=== PATIENT | female | born 2005 | race Caucasian/White ===

== ENCOUNTER 2024-09-24 06:05 | Emergency (ER) | payer MEDICAID, SELFPAY ==
[2024-09-24] VITALS (21 sets, daily range): BP systolic 119–122; BP diastolic 70–74; PULSE 57–87; RESP 18; TEMP 36.6; O2SAT 85–100; BMI 27.4
--- NOTE | 2024-09-24 17:58 | PC.NURSE ---
late entry 09/24/2024 [id number] Henriquez informed her that NST was reactive, no uterine contractions, patient denied any vaginal bleeding or leaking. Per Dr. Henriquez ok to transfer to ED department. Patient transferred by water treatment technician in wheelchair in stable conditio. Report given to ED RN
--- NOTE | 2024-09-24 18:42 | PD.EDNV ---
Nausea/Vomit./Diarrhea-RME/HPI General Chief complaint: Nausea/Vomiting/Diarrhea Stated complaint: LABOR EVAL Time Seen by Provider: 09/24/24 18:36 Arrival date/time: 09/24/24 06:05 19F with history of previous marijuana use, but none since being (currently 28 weeks) presents to ED with 1 day of N/V, epigastric pain and cough. Patient denies vaginal bleeding and was cleared by OB. Limitations: no limitations Related Data Previous Rx's ?Medication ?Instructions ?Recorded sodium chloride 0.65 % nasal spray 2 spray intranasal QID #60 mL 03/28/19 aerosol (Saline Mist) cefuroxime axetil 500 mg tablet 500 mg PO BID 7 days #14 tabs 09/24/24 metoclopramide HCl 10 mg tablet 10 mg PO BID #30 tabs 09/24/24 (Reglan) oseltamivir 75 mg capsule (Tamiflu) 75 mg PO BID 5 days #10 caps 09/24/24 Allergies Allergy/AdvReac Type Severity Reaction Status Date / Time No Known Allergies Allergy Verified 09/24/24 16:49 Review of Systems Review of Systems Systems Reviewed: All systems reviewed, normal except as documented Constitutional Constitutional: Reports system reviewed and no additional complaints, except as documented, Denies fever(s) and Denies headache(s) ENT Ears, Nose, Mouth, and Throat: Denies disequilibrium and Denies headache(s) Cardiovascular Cardiovascular: Reports system reviewed and no additional complaints, except as documented, Denies chest pain and Denies dyspnea Respiratory Respiratory: Reports system reviewed and no additional complaints, except as documented, Reports as per HPI, Reports cough and Denies dyspnea Gastrointestinal Gastrointestinal: Reports system reviewed and no additional complaints, except as documented, Reports as per HPI, Reports abdominal pain, Reports nausea and Reports vomiting Neurologic Neurologic: Reports system reviewed and no additional complaints, except as documented, Denies confusion, Denies disequilibrium and Denies headache(s) Psychiatric Psychiatric: Denies confusion Past Medical History Past Medical History NEUROLOGIC: Negative Neurological Disorders CARDIAC: Negative Cardiac Disorders, Congestive Heart Failure or Hypertension RESPIRATORY: Negative Chronic Obstructive Pulmonary Disease (COPD) or Asthma GASTROINTESTINAL: Negative Gastrointestinal Disorders GENITOURINARY: Negative Genitourinary Disorders or Renal Disease REPRODUCTIVE: Positive Previous Pregnancies MUSCULOSKELETAL: Negative Musculoskeletal Disorders or Scoliosis ENDOCRINE: Negative Endocrine Disorders, Diabetes Mellitus Type 1 or Diabetes Mellitus Type 2 HEMATOLOGIC: Positive Blood Disorders and Anemia (in ) PSYCHO/SOCIAL: Negative Depression, Anxiety or Depression OTHER HISTORY: Negative Autoimmune Disease Family History FAMILY HISTORY: Positive Family Cancer (grandmother thyroid); Negative Family Psychiatric Problems, Family Respiratory Disorders, Family Cardiac Disorders, Family Gastrointestinal Problems, Family Surgery or Family Anesthesia Reaction Surgical History SURGICAL: Negative Section Social History SMOKING STATUS: Never smoker ED Exam General Limitations: Present no limitations General appearance: Present alert and in no apparent distress Head Head exam: Present atraumatic Eye Eye exam: Present normal appearance, PERRL and EOMI ENT ENT exam: Present normal exam, normal oropharynx and mucous membranes moist Neck Neck exam: Present normal inspection, full ROM and trachea midline Chest Chest inspection: Present normal inspection and symmetric chest wall rise Respiratory Respiratory exam: Present normal lung sounds bilaterally Cardiovascular Cardiovascular exam: Present regular rate, normal rhythm and normal heart sounds Abdominal Exam Abdominal exam: Present soft and normal bowel sounds Extremities Exam Extremities exam: Present normal inspection and full ROM Back Exam Back exam: Present normal inspection and full ROM Neurological Exam Neurological exam: Present alert, oriented X3 and CN II-XII intact Psychiatric Psychiatric exam: Present normal affect and normal mood Skin Skin exam: Present warm, dry, intact and normal color Course Quality Measures none Orders Category Date Time Status Place in Observation Status Routine Admission 09/24/24 16:47 Active Bedside Influenza A&B Antigen Test NOW Care 09/24/24 18:36 Completed Continuous Monitoring Routine Care 09/24/24 16:47 Ordered Insert IV NOW Care 09/24/24 19:49 Active CBC Stat Lab 09/24/24 18:47 Completed CMP [Comprehensive Metabolic Panel] Stat Lab 09/24/24 18:47 Completed Drug Screen,Urine Stat Lab 09/24/24 19:00 Completed Lipase Stat Lab 09/24/24 18:47 Completed UA [Urinalysis] Stat Lab 09/24/24 18:59 Completed DiphenhydrAMINE INJ [Benadryl Inj] Med 09/24/24 20:17 Discontinued 12.5 mg IVP X1 ONE Metoclopramide Inj [Reglan Inj] Med 09/24/24 20:17 Discontinued 5 mg IVP X1 ONE Metoclopramide [Reglan] Med 09/24/24 18:37 Discontinued 10 mg PO X1 ONE Oseltamivir [Tamiflu] Med 09/24/24 21:07 Discontinued 75 mg PO X1 ONE Ringers Lactated 1000 ml [Lactated Ringers] 1,000 ml Med 09/24/24 19:50 Discontinued IV 999 mls/hr cefTRIAXone [Rocephin] 1,000 mg Med 09/24/24 19:49 Discontinued SODIUM CHLORIDE 0.9% (Popper) [Ns 0.9% (P)] 50 ml IV X1 Vital Signs Vital signs: Vital Signs Pulse Rate 87 09/24/24 16:27 Blood Pressure 119/74 09/24/24 16:27 O2 at 100% on RA and WNLs Nausea/Vomiting/Diarrhea MDM Narrative MDM Narrative:: 19F with history of previous marijuana use, but none since being (currently 28 weeks) presents to ED with 1 day of N/V, epigastric pain and cough. Patient denies vaginal bleeding and was cleared by OB. Physical exam reveals clear ENT and lungs. No ab tenderness. Patient is afebrile, calm, and alert. Flu A+. Marijuana still positive. UA dehydration and UTI. No leukocytosis. CMP unremarkable. PO challenge passed after meds and IVF. Will give Tamiflu given status. Patient data External records reviewed:: [facility] previous records Clinical information provided by:: patient Social determinants that could affect healthcare access:: substance use Patient has the following chronic illnesses:: marijuana use How is presenting disease/condition affected by chronic disease/condition?: exacerbated by Evaluation data The following diagnostics were reviewed and interpreted by me:: lab results Lab and/or radiology exams considered but not ordered:: ordered Interpretation Summary: above Medications / Prescriptions Medications / Prescriptions considered but not ordered:: ordered Medication administrations:: Medication Administration History Discontinued Medications Diphenhydramine HCl (Diphenhydramine Inj 50 Mg/Ml Vial) 12.5 mg IVP X1 ONE Stop: 09/24/24 20:18 Last Admin: 09/24/24 20:28 Dose: 12.5 mg Documented By: SEJAL Ceftriaxone Sodium 1,000 mg/ (Sodium Chloride) 50 mls @ 100 mls/hr IV X1 ONE Stop: 09/24/24 20:18 Last Admin: 09/24/24 20:08 Dose: 100 mls/hr Documented By: SEJAL Lactated Ringer's (Lactated Ringers) 1,000 mls @ 999 mls/hr IV .Q1H1M ONE Stop: 09/24/24 20:50 Last Admin: 09/24/24 20:09 Dose: 999 mls/hr Documented By: SEJAL Metoclopramide HCl (Metoclopramide 5 Mg Tablet) 10 mg PO X1 ONE Stop: 09/24/24 18:38 Last Admin: 09/24/24 19:06 Dose: 10 mg Documented By: JU Metoclopramide HCl (Metoclopramide Inj 5 Mg/Ml Vial 2 Ml) 5 mg IVP X1 ONE; Protocol Stop: 09/24/24 20:18 Last Admin: 09/24/24 20:28 Dose: 5 mg Documented By: SEJAL Oseltamivir Phosphate (Oseltamivir 75 Mg Capsule) 75 mg PO X1 ONE Stop: 09/24/24 21:08 above Consultations Consultation(s) initiated? (list below): No Diagnosis Nausea Differential Diagnosis: traveler's diarrhea, food poisoning, gastroenteritis, clostridium difficile infection, drug-induced nausea and vomiting, dehydration and other (URI, flu, marijuana use) Most likely diagnosis given after review of the tests above:: flu A, marijuana use, and UTI Admission Indicated Admission indicated?: not indicated Admission Request Was there a request for admission?: No Disposition Plan Disposition Plan: Discharge Discharge Attestation Discharge Attestation: The patient and all family members were given an opportunity to ask questions and understood the discharge instructions. Discharge instructions specifically effects, indications for sooner follow up or return to the emergency department, and the expected course of current diagnosis. Patient condition: Stable Discharge Plan Plan Patient Disposition: HOME (Self Care) Disposition Comment: Stable Prescriptions/Referrals Prescriptions/Med Rec: New metoclopramide HCl [Reglan] 10 mg tablet 10 mg PO BID Qty: 30 0RF cefuroxime axetil 500 mg tablet 500 mg PO BID 7 Days Qty: 14 0RF oseltamivir [Tamiflu] 75 mg capsule 75 mg PO BID 5 Days Qty: 10 0RF No Action sodium chloride [Saline Mist] 0.65 % aerosol,spray 2 spray INTRANASAL QID Qty: 60 0RF Referrals: Jason Gonzales MD [Primary Care Provider] - In 1 week Problem List Clinical Impression: Influenza A, Marijuana use, UTI (urinary tract infection) Patient/Caregiver Discharge Instructions Education Materials: ED Influenza (Adult), ED CYSTITIS Female Adult Additional Instructions: Please follow-up with PCP within 24-48 hours and return immediately if symptoms worsen. Tylenol can be used for fever/pain control. Benadryl is good for cough, congestion, and sleep. Stop smoking marijuana. Keep hydrated. Print Language: Hong Konger Stand Alone Forms: Patient Portal Info Letter PA/ELECTRIC RANGE PREPARER Supervising Physician PA/ELECTRIC RANGE PREPARER Supervising Physician: Dr. Mendez
[2024-09-24 19:05] LABS: Collection Type, Urine Clean Catch
[2024-09-24] MEDS: METOCLOPRAMIDE 5 MG TABLET 10 MG PO (19:06)
[2024-09-24 19:09] LABS: Basophils % (Auto) 0 % (0-2.5); Eosinophils % (Auto) 0 % (0-10); Hematocrit 38.2 % (36.0-46.0); Hemoglobin 12.7 g/dL (12.0-16.0); Immature Granulocytes % (Auto) 1 % (0-0); Immature Granulocytes Auto 0.07 Thou/mm3 (0.00-0.00); Lymphocytes # (Auto) 1.3 Thou/mm3 (1.0-4.8); Lymphocytes % (Auto) 15 % (10-50); Mean Corpuscular HGB Conc 33.2 g/dl (31.0-37.0); Mean Corpuscular Hemoglobin 26.1 pg (25.0-35.0); Mean Corpuscular Volume 78 fL (80-100); Monocytes # (Auto) 0.6 Thou/mm3 (0.0-0.8); Monocytes % (Auto) 7 % (0-12); Neutrophils # (Auto) 6.6 Thou/mm3 (1.8-7.7); Neutrophils % (Auto) 77 % (37-80); Nucleated Red Blood Cell % 0 /100 WBC (0); Platelet Count 193 Thou/mm3 (140-440); RDW Standard Deviation 39.7 fL (36.4-46.3); Red Blood Count 4.87 Miln/mm3 (4.00-5.20); White Blood Count 8.6 Thou/mm3 (4.5-11.0)
[2024-09-24 19:15] LABS: Bacteria,Urine Rare; Bilirubin,Urine Negative (Negative); Blood,Urine Negative (Negative); Clarity,Urine Turbid (Clear/Hazy); Color,Urine Yellow (Lt Yel-Yel); Glucose, Urine Negative (Negative); Ketones,Urine 4+ (Negative); Leukocyte Esterase,Urine Positive (Negative); Nitrite,Urine Positive (Negative); PH,Urine 6.5 (5.0-7.0); Protein,Urine 2+ (Neg - Trace); RBC,Urine 6 /hpf (0-3); Squamous Epithelial Cell,Urine 8 /hpf (0-5); WBC,Urine 238 /hpf (0-5)
[2024-09-24 19:21] LABS: Amphetamine/Methamp Scrn,U Negative (Negative); Barbiturate Screen,Urine Negative (Negative); Benzodiazepines Screen,Urine Negative (Negative); Benzoylecgonine Screen, Ur Negative (Negative); Fentanyl Screen,Urine Negative (Negative); Opiate Screen,Urine Negative (Negative); THC Screen,Urine Positive (Negative)
[2024-09-24 19:25] LABS: Alanine Aminotransferase 25 U/L (10-49); Albumin/Globulin Ratio 1.5 (1.2-2.2); Alkaline Phosphatase 121 U/L (46-116); Anion Gap 12 (7-16); Aspartate Amino Transferase 46 U/L (0-34); BUN/Creatinine Ratio 10 Ratio (12-20); Bilirubin,Total 1.1 mg/dL (0.3-1.2); Blood Urea Nitrogen 6 mg/dL (9-23); Calcium 8.7 mg/dL (8.3-10.6); Calcium (Corrected) 8.7 mg/dL (8.5-10.1); Carbon Dioxide 22.8 mMol/L (20.0-31.0); Chloride 107 mMol/L (98-107); Creatinine (Component) 0.6 mg/dL (0.6-1.3); Globulin 2.6 gm/dL (2.3-3.5); Glucose 91 mg/dL (74-106); Lipase 34 U/L (12-53); Osmolality,Calculated 280 (275-295); Potassium 3.4 mMol/L (3.4-5.1); Sodium 142 mMol/L (136-145); Total Protein 6.6 gm/dL (5.7-8.2); eGFR > 60 See Note
[2024-09-24] MEDS: cefTRIAXone 1,000 MG in SODIUM CHLORIDE 0.9% (Popper) 50 ML 100 MG IV (20:08)
[2024-09-24] MEDS: RINGERS LACTATED 1000 ML 1,000 ML 999 ML IV (20:09)
[2024-09-24] MEDS: DiphenhydrAMINE INJ 50 MG/ML VIAL 12.5 MG IVP (20:28)
[2024-09-24] MEDS: METOCLOPRAMIDE INJ 5 MG/ML VIAL 2 ML IVP (20:28)
[2024-09-24] MEDS: OSELTAMIVIR 75 MG CAPSULE PO (21:16)
== END 2024-09-24 21:36 | disposition home or self-care (01) ==
LOC: S4SX 17:16 → SERX 19:10
PROVIDERS: Physician Assistant; Emergency Provider Emergency Medicine; PCP Family Medicine
DX: O99.513 Diseases of the respiratory system complicating pregnancy, third trimester (principal); J10.1 Influenza due to other identified influenza virus with other respiratory manifestations; O23.43 Unspecified infection of urinary tract in pregnancy, third trimester; N39.0 Urinary tract infection, site not specified; O99.323 Drug use complicating pregnancy, third trimester; F12.90 Cannabis use, unspecified, uncomplicated; Z3A.28 28 weeks gestation of pregnancy
CPT/HCPCS: 36415; 80053; 80307; 81001; 83690; 85025; 87400; 96365; 96375; 99284; J0696; J1200; J2765; J7050; J7120; A9270

== ENCOUNTER 2024-12-03 20:14 | Observation (INO) | payer MEDICAID, SELFPAY ==
[2024-12-03 20:23] VITALS: BP 110/68; PULSE 114; O2SAT 98
[2024-12-03 20:28] VITALS: BP 110/68; PULSE 105; PULSE 120; RESP 18; RESP 99; TEMP 36.6; O2SAT 100; BMI 26.5
[2024-12-03 20:33] VITALS: PULSE 98; O2SAT 100
[2024-12-03 20:38] VITALS: PULSE 98; O2SAT 99
== END 2024-12-03 20:58 | disposition home or self-care (01) ==
PROVIDERS: Admitting Provider Specialist; Visit Provider Specialist
DX: O47.1 False labor at or after 37 completed weeks of gestation (principal); Z3A.38 38 weeks gestation of pregnancy
CPT/HCPCS: 59025; 59899

== ENCOUNTER 2024-12-04 18:45 | Inpatient (IN) | payer MEDICAID, SELFPAY ==
[2024-12-04] VITALS (84 sets, daily range): BP systolic 101–168; BP diastolic 49–109; PULSE 67–153; O2SAT 89–100; BMI 27.1
[2024-12-04 19:49] LABS: Basophils % (Auto) 0 % (0-2.5); Eosinophils # (Auto) 0.2 Thou/mm3 (0.0-0.5); Eosinophils % (Auto) 2 % (0-10); Hematocrit 33.7 % (36.0-46.0); Hemoglobin 11.4 g/dL (12.0-16.0); Immature Granulocytes % (Auto) 1 % (0-0); Immature Granulocytes Auto 0.08 Thou/mm3 (0.00-0.00); Lymphocytes # (Auto) 1.5 Thou/mm3 (1.0-4.8); Lymphocytes % (Auto) 19 % (10-50); Mean Corpuscular HGB Conc 33.8 g/dl (31.0-37.0); Mean Corpuscular Hemoglobin 25.4 pg (25.0-35.0); Mean Corpuscular Volume 75 fL (80-100); Monocytes # (Auto) 0.6 Thou/mm3 (0.0-0.8); Monocytes % (Auto) 8 % (0-12); Neutrophils # (Auto) 5.4 Thou/mm3 (1.8-7.7); Neutrophils % (Auto) 70 % (37-80); Nucleated Red Blood Cell % 0 /100 WBC (0); Platelet Count 211 Thou/mm3 (140-440); RDW Standard Deviation 39.2 fL (36.4-46.3); Red Blood Count 4.49 Miln/mm3 (4.00-5.20); White Blood Count 7.8 Thou/mm3 (4.5-11.0)
[2024-12-04] MEDS: Ampicillin Inj 2,000 MG in SODIUM CHLORIDE 0.9% (POP) 100 ML 200 MG IV (20:03)
[2024-12-04] MEDS: RINGERS LACTATED 1000 ML 1,000 ML 125 ML IV (20:03)
[2024-12-04 21:15] LABS: Syphilis Nonreactive (Nonreactive)
[2024-12-04] MEDS: OXYTOCIN in NS 20 units 20 UNIT/1,000 ML BAG 125 UNIT IV (21:26)
[2024-12-04] MEDS: OXYTOCIN INJ 10 UNIT/ML VIAL IM (21:26)
[2024-12-04] MEDS: MISOPROSTOL 200 mCg TABLET 800 MCG PR (21:28)
[2024-12-04] MEDS: TRANEXAMIC ACID 1,000 MG IVPB 1,000 MG/100 ML BAG 200 MG IV ×2 (21:39→23:32)
[2024-12-04] MEDS: BENZO/LANO/ALOE (Dermoplast) 60 GM CAN 1 SPRAY TOP (21:42)
--- NOTE | 2024-12-04 21:59 | PD.LDHP ---
Documentation for date of: 12/04/24 OB Labor/Induct. HPI History of Present Illness Chief complaint: labor : 4 Para: 3 Term pregnancies: 3 pregnancies: 0 Living children: 3 History of Abortions: Spontaneous and Elective: 0 History of sections: No History of : No Date of last menstrual period: 03/10/24 ALTAGRACIA: 12/15/24 Gestational Age (weeks): 38 Gestational Age (days): 3 Gestational age based on last menstrual period: 38 History of present illness: 19-year-old 4 para 3 admit to labor and delivery with contractions since 10 in the afternoon. Patient has been followed at [facility] care. First visit was in the second trimester. Last. March 10, 2024. An estimated due date December 15, 2024. MFM showed normal anatomy. Patient has a positive screen for SMA. Cystic fibrosis and NIPT were normal. Positive history of THC. Denies surgeries. Denies chronic illness. She reports movement. Patient is O+, antibody screen negative, RPR nonreactive, rubella immune, hepatitis B negative, hep C negative, HIV negative, GC and Chlamydia were negative. 1 hour Glucola negative. GBS unknown. History of Present Dating criteria: LMP confirmed by 2nd trimester US Adequate Care: Yes Ultrasounds: normal mid trimester US Obstetrical complications: none Medical complications: none Labs Labs: Positive: Rubella Titre, Negative: RPR, Hepatitis B, HIV, Chlamydia and Gonorrhea and Unknown: Herpes Type 1, Herpes Type 2, Group Beta Strep and Covid-19 Past Medical History Surgical History SURGICAL: Negative Section Meds Home Medications and Allergies Home Medications ?Medication ?Instructions ?Recorded ?Confirmed ?Type vits no.130-ferrous fum 1 tab PO QDAY 12/03/24 12/04/24 History 27 mg iron-folic acid 800 mcg tablet ( Vitamin) Allergies Allergy/AdvReac Type Severity Reaction Status Date / Time No Known Allergies Allergy Verified 12/04/24 19:16 OB Exam Physical Exam Vital signs: Pulse BP Pulse Ox 133 H 168/60 H 96 12/04/24 21:46 12/04/24 21:46 12/04/24 21:54 Narrative: Alert and oriented. Normal heart rate and rhythm. Lungs clear no wheezes. Gravid abdomen. Gynecoid pelvis. Estimated weight 6 and half pounds. Vaginal exam on admission was 80%, 5, -2. Vertex. Cervix was posterior. She heart rate category 1 with accelerations and moderate variability. Contractions were every 3 to 4 minutes. Bag water intact Detailed Labor and Delivery Exam Dilation (cm): 5 Effacement (%): 80 Cervix position: posterior station: -2 Consistency: soft Presentation: Vertex Cervical ripeness score: 8 Membranes: intact Baseline heart rate: 130 monitor accelerations: 15x15 monitor decelerations: None correction variability: Moderate (11-25) Contraction frequency (min): 3-4 Contraction duration (sec): 40 Tachysystole: No Contraction intensity: Moderate OB Results Labs 12/04/24 19:15 Labs: Short CBC 12/04/24 Range/Units 19:15 WBC 7.8 (4.5-11.0) Thou/mm3 Hgb 11.4 L (12.0-16.0) g/dL Hct 33.7 L (36.0-46.0) % Plt Count 211 (140-440) Thou/mm3 OB Assessment & Plan Assessment and Plan (1) Normal labor and delivery: Status: Acute Additional Plan Induction method: none Plan: anticipate NVD, GBS prophylaxis tx and consult MD leonard
--- NOTE | 2024-12-04 22:04 | OBDSUM_ITS ---
Data (Barnes) Data Hx Section: No : 4 Term: 3 : 0 Livin Abortions: Spontaneous & Theraputic: 0 Delivery Data (Barnes) Labor Data Initiation of labor: Spontaneous Induction/Augmentation Agent: None ROM date: 12/04/24 ROM time: 21:13 Amniotic membrane rupture type: Spontaneous Amniotic fluid description: Clear Delivery Data EDC: 12/15/24 EDC calculated by:: ultrasound Date of arrival to unit: 12/04/24 Time of arrival to unit: 18:45 Onset of labor date: 12/04/24 Onset of labor time: 18:45 Complete dilation date: 12/04/24 Complete dilation time: 21:14 delivery date: 12/04/24 delivery time: 21:21 Gestational age (weeks): 38 Gestational age (days): 3 Placenta delivery date: 12/04/24 Placenta delivery time: 21:25 Stage 1 total time: Labor - Stage 1 Duration 2 hours and 29 minutes Delivered by: svetlana cueav Delivery nurse: maxwell aguirre rn [place]orn nurse: debbi bell Retail Advertising Sales Manager at delivery: No Support person(s) at delivery: father of baby Delivery Method Delivery method: Normal Vaginal Delivery Presentation: Vertex position: OA Anesthesia Type Anesthesia Type: Epidural Delivery Room Medications Delivery room medications given: TXA x2 Delivery room medications: Pitocin 10 u IM, Pitocin 20 u IV and Cytotec 800 UT Placenta Placenta delivery description: Spontaneous (intact placenta,inspected) Placenta Disposition: Cultured Cord blood sent to lab: Yes cord blood collection: Cord Blood Type Episiotomy Episiotomy description: None Lacerations #1: Periurethral: mid Perineal repair Sutures used for repair: 3.0 Vicryl EBL Estimated blood loss (ml): 400 Umbilical Cord cord description: 3 Vessels Data (Barnes) Data order: 1 Argyle's gender: Male Identification band number: [id number] weight (gms): 2840 g Weight (pounds): 6 lbs and 4.2 ozs length: 49 cm 1 minute: 9 5 minutes: 9
[2024-12-05] VITALS (7 sets, daily range): BP systolic 99–116; BP diastolic 64–74; PULSE 59–90; RESP 16–18; TEMP 36.6–36.9; O2SAT 99–100
[2024-12-05] MEDS: IBUPROFEN TAB 400 MG TABLET 800 MG PO ×3 (00:11→17:49)
--- NOTE | 2024-12-05 00:39 | PC.NURSE ---
2355: PATIENT PLACED ON BEDPAN, UNABLE TO VOID. PERICARE DONE, CLEAN PAD AND GOWN PLACED. PATIENT UNABLE TO MOVE RIGHT LEG INDEPENDENTLY. PATIENT ASSISTED TO TRANSFER TO WHEELCHAIR. PATIENT TRANSFERED TO ROOM 458 VIA WHEELCHAIR. PATIENT TOLERATED WELL. 0020: PATIENT ASSISTED TO BED FROM WHEELCHAIR IN ROOM 468. PATIENT EDUCATED ON CALLING NURSE FOR ASSISTANCE WHEN SHE FEELS URGE TO VOID. PATIENT VERBALIZES UNDERSANDING. 0035: HAND OFF TO Akiko DAMON RN
[2024-12-05 02:30] LABS: Amphetamine/Metham Scrn,Ur OB Negative (Negative); Benzoylecgonine Screen, Ur OB Negative (Negative); Opiate Screen,Urine OB Negative (Negative); THC Screen,Urine OB Positive (Negative)
[2024-12-05 02:31] LABS: THC U Confirm* See Sep Rpt
--- NOTE | 2024-12-05 04:52 | PD.LDPPPRG ---
Subjective Subjective Interval history: No complaints of pain. No dizziness. Bonding and breast-feeding Exam Vital Signs Pulse BP Pulse Ox 89 106/67 100 12/05/24 00:00 12/05/24 00:00 12/05/24 00:04 Narrative Exam Vital signs stable afebrile. Breasts are soft. Fundus firm below the umbilicus. Perineum intact no swelling. Small lochia. Uterus well involuted. Negative Homans' sign. 2+ DTRs Objective Labs 12/04/24 19:15 Labs: Laboratory Results - last 24 hr 12/04/24 12/04/24 19:15 19:45 WBC 7.8 RBC 4.49 Hgb 11.4 L Hct 33.7 L MCV 75 L MCH 25.4 MCHC 33.8 RDW Std Deviation 39.2 Plt Count 211 Neut % (Auto) 70 Lymph % (Auto) 19 [place] % (Auto) 8 Eos % (Auto) 2 Baso % (Auto) 0 Neut # (Auto) 5.4 Lymph # (Auto) 1.5 [place] # (Auto) 0.6 Eos # (Auto) 0.2 Baso # (Auto) 0.0 Immature Gran # (Auto) 0.08 H Absolute Nucleated RBC 0.00 Immature Gran % 1 H Nucleated RBC % 0 Urine Opiates Screen Negative U Amphetamin/Meth Scrn Negative U Cocaine Metab Screen Negative U Marijuana (THC) Screen Positive A Syphilis Serology Nonreactive Blood Type O Positive Antibody Screen NEGATIVE Crossmatch See Detail Blood Bank Wristband ID Yes Assessment & Plan Problem List (1) Normal labor and delivery: Status: Acute Assessment Comment Assessment comment: 24 hr pp Plan Comment Plan Comment: Discharge home in the morning on 12/05. Continue with ibuprofen as needed for cramps. Increase fluids. Help with mom baby bonding and bonding. Discussed care periurethral laceration. Time Spent With Patient Time: Total time spent is greater than 50% in coordination of care (as documented) at patient's floor/unit and/or counseling patient:
[2024-12-05 07:24] LABS: Basophils % (Auto) 0 % (0-2.5); Eosinophils # (Auto) 0.1 Thou/mm3 (0.0-0.5); Eosinophils % (Auto) 1 % (0-10); Hematocrit 28.1 % (36.0-46.0); Hemoglobin 9.3 g/dL (12.0-16.0); Immature Granulocytes % (Auto) 1 % (0-0); Immature Granulocytes Auto 0.08 Thou/mm3 (0.00-0.00); Lymphocytes # (Auto) 1.9 Thou/mm3 (1.0-4.8); Lymphocytes % (Auto) 14 % (10-50); Mean Corpuscular HGB Conc 33.1 g/dl (31.0-37.0); Mean Corpuscular Hemoglobin 25.8 pg (25.0-35.0); Mean Corpuscular Volume 78 fL (80-100); Monocytes # (Auto) 0.9 Thou/mm3 (0.0-0.8); Monocytes % (Auto) 6 % (0-12); Neutrophils # (Auto) 10.5 Thou/mm3 (1.8-7.7); Neutrophils % (Auto) 78 % (37-80); Nucleated Red Blood Cell % 0 /100 WBC (0); Platelet Count 170 Thou/mm3 (140-440); RDW Standard Deviation 40.3 fL (36.4-46.3); Red Blood Count 3.61 Miln/mm3 (4.00-5.20); White Blood Count 13.4 Thou/mm3 (4.5-11.0)
--- NOTE | 2024-12-05 09:56 | PC.SS ---
PHYSICAL THERAPY COORDINATOR conducted bedside contact with the patient to address nursing referral indicating patient?s toxicology report was positive for THC.? PHYSICAL THERAPY COORDINATOR introduced self and role.? Present with patient was FOArleen, Mike Higginbotham .? Patient gave consent for FOB to be present during discussion.? PHYSICAL THERAPY COORDINATOR discussed basis of referral.? Patient confirmed use of THC during .? Patient informed PHYSICAL THERAPY COORDINATOR THC used to address nausea.? Patient reports that use not conducted in presence of other children.? Patient relayed that THC was stored out of reach of children.? Patient shared with PHYSICAL THERAPY COORDINATOR that she plans on ceasing use.? , Butch; is the patient?s 4th child.? Patient?s other 3 children are ages: 5, 3, 1 years old.? PHYSICAL THERAPY COORDINATOR informed patient that CWS report would be generated due to positive toxicology report.? Patient acknowledged submittal of report.? Patient confirmed contact number and home address as listed on face sheet.? Chart review indicated that patient tested (+) for THC on 07-09-22 during delivery of 2nd child.? Patient resides at home with FOB, grandmother Marylou Kelly and 3 other children.? Infant was delivered naturally.? Patient plans on bottle feeding the . ?OB services provided by [facility].? Patient reports consistency with OB appointments.? Patient denies possessing a history of mental health.? Patient is aligned with SNAP and WIC.? Patient is not receiving TANF.? Patient denies history of alcohol/drug abuse.? Patient possesses past history of CWS involvement.? Patient denies episodes of domestic violence.? Patient has access to appropriate supplies and equipment; to include a car seat.? FOB will provide transportation upon discharge.? Patient describes possessing support system consisting of FOB and extended family.? PHYSICAL THERAPY COORDINATOR provided the patient with community resources to include Parenting Network, Crisis Line and Warm Line.? No further intervention required at this time, social science research assistant will be available to address any further concerns.? PHYSICAL THERAPY COORDINATOR updated bedside nurse.?
--- NOTE | 2024-12-05 10:40 | PC.SS ---
Verbal CWS report provided to Angy Mckeon. Written report submitted electronically. Copy of CWS report placed in patient's chart. Bedside nurse updated.
[2024-12-06 00:30] VITALS: BP 117/79; PULSE 64; RESP 18; O2SAT 100
[2024-12-06] MEDS: IBUPROFEN TAB 400 MG TABLET 800 MG PO (02:34)
[2024-12-06 05:00] VITALS: BP 104/71; PULSE 64; RESP 18; TEMP 36.7; O2SAT 99
--- NOTE | 2024-12-06 06:56 | ESPR_ITS ---
Subjective Subjective Interval history: No complaints of pain. No dizziness. Bonding breast-feeding Exam Vital Signs Temp Pulse Resp BP Pulse Ox O2 Del Method 98.1 F 64 18 104/71 99 Room Air 12/06/24 05:00 12/06/24 05:00 12/06/24 05:00 12/06/24 05:00 12/06/24 05:00 12/06/24 05:00 Narrative Exam Vital signs stable afebrile. Pressure soft. Fundus firm below umbilicus. Perineum intact no no swelling. Lochia small. Negative Homans' sign. 2+ DTRs. Objective Labs 12/05/24 06:20 Labs: Laboratory Results - last 24 hr 12/05/24 06:20 WBC 13.4 H D RBC 3.61 L Hgb 9.3 L D Hct 28.1 L MCV 78 L MCH 25.8 MCHC 33.1 RDW Std Deviation 40.3 Plt Count 170 D Neut % (Auto) 78 Lymph % (Auto) 14 [place] % (Auto) 6 Eos % (Auto) 1 Baso % (Auto) 0 Neut # (Auto) 10.5 H Lymph # (Auto) 1.9 [place] # (Auto) 0.9 H Eos # (Auto) 0.1 Baso # (Auto) 0.0 Immature Gran # (Auto) 0.08 H Absolute Nucleated RBC 0.00 Immature Gran % 1 H Nucleated RBC % 0 Assessment & Plan Problem List (1) Normal labor and delivery: Status: Acute Assessment Comment Assessment comment: 24 hr pp Plan Comment Plan Comment: Discharge home with baby. Continue vitamins and iron. Tylenol or ibuprofen for pain. Danger signs reviewed with patient. Discussed ER precautions and parameters. Discussed signs symptoms of infection. Increase fluids. And discussed comfort measures for periurethral tear. Return to clinic in 3 weeks for check Time Spent With Patient Time: Total time spent is greater than 50% in coordination of care (as documented) at patient's floor/unit and/or counseling patient:
--- NOTE | 2024-12-06 06:58 | ESDS_ITS ---
DS: Providers Provider Date of admission: 12/04/24 19:03 Primary care physician: Physician No Primary/Family Admitting Provider: Karime Talamantes CNM Attending Provider on Admission: Terrance Cisneros MD Consults: 12/04/24 23:28 Referral Routine Comment: Attending Provider on DC: Karime Talamantes CNM Discharging Provider: Karime Talamantes CNM DS: Diagnosis Problem List Completed Was Problem List Reviewed/Reconciled?: Yes Summary/Hosp Course Brief History: 19-year-old 4 para 3 admit to labor and delivery with contractions since 10 in the afternoon. Patient has been followed at [facility] care. First visit was in the second trimester. Last. March 10, 2024. An estimated due date December 15, 2024. MFM showed normal anatomy. Patient has a positive screen for SMA. Cystic fibrosis and NIPT were normal. Positive history of THC. Denies surgeries. Denies chronic illness. She reports movement. Patient is O+, antibody screen negative, RPR nonreactive, rubella immune, hepatitis B negative, hep C negative, HIV negative, GC and Chlamydia were negative. 1 hour Glucola negative. GBS unknown. Peripartum Data Delivery Method: Normal Vaginal Delivery Episiotomy Description: None Laceration Description: yes (small PU) Time Spent with Patient Time attestation: Total time spent providing and/or coordinating discharge services: Exam Vital Signs Temp Pulse Resp BP Pulse Ox O2 Del Method 98.1 F 64 18 104/71 99 Room Air 12/06/24 05:00 12/06/24 05:00 12/06/24 05:00 12/06/24 05:00 12/06/24 05:00 12/06/24 05:00 Discharge Plan Plan Patient Disposition: HOME (Self Care) Patient condition on transfer: Stable Prescriptions/Referrals Prescriptions/Med Rec: No Action Vitamin 27 mg iron- 800 mcg tablet 1 tab PO QDAY Patient Comments: take 1 tablet by mouth once daily Referrals: No Primary/Family,Physician [Primary Care Provider] - Patient/Caregiver Discharge Instructions Meds to Beds: No Discharge Activity: activity as tolerated and resume usual activities Other Discharge Activity Instructions:: vaginal rest and no heavy lifting for 6 [address] while taking narcotic. keep incision clean and dry, do not submerge. Education Materials: After a Vaginal , Breast Care After Print Language: German Activity Restrictions/Additional Instructions: Discharge home with baby. Continue vitamins and iron. Tylenol or ibuprofen for pain. Danger signs and symptoms reviewed with patient. Discussed ER precautions and parameters. Discussed signs symptoms of infection. Increase fluids. Discussed comfort measures for periurethral laceration. And return to the clinic in 3 weeks for visit Stand Alone Forms: Shasha Award Info., Patient Portal Info Letter Discharge Order Discharge Orders: Discharge (Routine); Ordered 12/06/24 Ordered By: Karime Talamantes Planned Discharge Date 12/06/24
== END 2024-12-06 08:35 | disposition home or self-care (01) | DRG 560 ==
LOC: S4SX 22:45 → S4NX 12-05 06:32 → S4SX 12-05 16:23 → S4NX 12-05 16:23
PROVIDERS: Admitting Provider Advanced Practice Midwife; Visit Provider Obstetrics & Gynecology
DX: O71.82 Other specified trauma to perineum and vulva (principal); Z37.0 Single live birth; Z3A.38 38 weeks gestation of pregnancy
CPT/HCPCS: 36415; 59409; 59899; 80307; 85025; 86780; 86850; 86900; 86901; 86923; 94762; J0290; J2590; J2795; J3010; J3490; J7120; S0191; A9270